=== PATIENT | female | born 1995 | race African-American/Black ===

== ENCOUNTER 2016-11-02 21:35 | Emergency (ER) | payer SELFPAY ==
[~2016-11-02] VITALS: Ht 162.6 cm; Wt 99.8 kg
[2016-11-02 22:00] VITALS: BP 146/93
[2016-11-02 22:29] LABS: Urine RBC None Seen /hpf (0 - 4)
[2016-11-02 22:38] LABS: Urine Bilirubin Negative (Negative); Urine Blood Negative /uL (Negative); Urine Color Yellow (Yellow); Urine Glucose Normal (Normal); Urine Ketone Negative (Negative); Urine Nitrite Negative (Negative); Urine Squamous Epithelial Cell FEW /hpf (<5); Urine Urobilinogen Normal (Negative); Urine pH 6.5 (5.0-8.0)
== END 2016-11-02 22:30 | disposition left against medical advice (07) ==
LOC: ER 21:38
DX: R07.89 Other chest pain (principal); Z53.21 Procedure and treatment not carried out due to patient leaving prior to being seen by health care provider
CPT/HCPCS: 81001; 81025